=== PATIENT | female | born 1970 | race Two or more races ===

== ENCOUNTER 2017-01-06 10:29 | Emergency (ER) | payer OTHER ==
[~2017-01-06] VITALS: Ht 160 cm; Wt 79.4 kg
--- NOTE | 2017-01-06 10:35 | NUR ---
bibra 89 due to syncopal episode after she got a news that her cousin . Pt is [id number], appears in no apparent distress. Respiration even and unlabored. Denies pain or discomfort. No chest pain noted. Gowned pt and placed on tele monitor. vss. will cont to monitor
[2017-01-06] MEDS ORDERED: IV SET PRIMARY 1 EA INFUS.SET MC ONE (10:39)
[2017-01-06] MEDS ORDERED: IV NS 0.9% 1,000 ML ONE (10:39)
--- NOTE | 2017-01-06 10:41 | NUR ---
iv accessed to [facility] 20. blood sample sent to lab
[2017-01-06 10:43] LABS: BASOPHILS % (AUTO) 0.5 % (0.0-2.0); EOSINOPHILS # (AUTO) 0.3 /CMM (0.0-0.7); EOSINOPHILS % (AUTO) 3.1 % (0.0-6.0); HEMATOCRIT 40 % (33-45); HEMOGLOBIN 13.3 g/dL (11.5-14.8); LYMPHOCYTES # (AUTO) 2.6 /CMM (0.8-4.8); LYMPHOCYTES % (AUTO) 28.2 % (20.0-44.0); MEAN CORPUSCULAR HEMOGLOBIN 27 PG (26.0-33.0); MEAN CORPUSCULAR HGB CONC 34 g/dl (31.0-36.0); MEAN CORPUSCULAR VOLUME 82 fL (82-100); MONOCYTES # (AUTO) 0.4 /CMM (0.1-1.30); MONOCYTES % (AUTO) 4.6 % (2.0-12.0); NEUTROPHILS # (AUTO) 5.9 /CMM (1.8-8.9); NEUTROPHILS % (AUTO) 63.6 % (43.0-81.0); PLATELET COUNT (AUTO) 304 /CMM (150-450); RDW COEFFICIENT OF VARIATION 12.6 (11.5-15.0); RED BLOOD CELL COUNT(AUTO) 4.86 MIL/uL (4.0-5.2); WHITE BLOOD COUNT (AUTO) 9.2 K/uL (4.3-11.0)
[2017-01-06 10:53] LABS: CALCIUM, SERUM 9.1 mg/dL (8.5-10.1); CREATININE 0.7 mg/dL (0.6-1.3); POTASSIUM 3.6 mmol/L (3.5-5.1)
[2017-01-06] MEDS ORDERED: IV NS 0.9% 1,000 ML BAG IV ONE (11:00)
[2017-01-06 11:01] LABS: TROPONIN I 0.022 ng/mL (0.00-0.056)
[2017-01-06 11:49] LABS: APPEARANCE,URINE Turbid (CLEAR); BILIRUBIN,URINE Negative (NEGATIVE); BLOOD, URINE Negative Ery/uL (NEGATIVE); COLOR,URINE Light yellow (YELLOW); KETONES,URINE Negative (NEGATIVE); LEUKOCYTE ESTERASE ,URINE Small (NEGATIVE); NITRITE, URINE Negative (NEGATIVE); PROTEIN,URINE 100 mg/dl (NEGATIVE); UROBILINOGEN,URINE 0.2 EU/dL (0.2)
[2017-01-06 11:51] LABS: UGLUCOSE 500 MG/DL mg/dL (NEGATIVE)
[2017-01-06 11:58] LABS: ADD URINE CULTURE NO; BACTERIA,URINE Rare /HPF (None Seen); SQUAMOUS EPITHELIAL CELL,UR Few /HPF (None Seen); WBC,URINE 15-20 /HPF (0-3)
[2017-01-06 12:12] VITALS: BP 132/72
--- NOTE | 2017-01-06 12:25 | NUR ---
Patient discharged to home in stable condition. Written and verbal after care instructions given. Patient verbalizes understanding of instruction.IV removed. Catheter intact and site benign. Pressure and 4x4 applied to site. No bleeding noted. ambulatory with steady gait. rr even and unlabored. vss. no further complaints. prescriptions given. leaving with daughter via private car.
== END 2017-01-06 12:14 | disposition home or self-care (01) ==
LOC: ER 10:32
DX: R55 Syncope and collapse (principal); N39.0 Urinary tract infection, site not specified; I10 Essential (primary) hypertension; E11.9 Type 2 diabetes mellitus without complications; Z88.0 Allergy status to penicillin; Z90.49 Acquired absence of other specified parts of digestive tract
CPT/HCPCS: 36415; 80048; 81001; 84484; 85025; 93005; 96360; 99285; A4606; J7030; Z7610; 81000-TC